=== PATIENT | female | born 1935 | race Caucasian/White ===

== ENCOUNTER → 2017-05-03 | Outpatient (CLI) | payer OTHER, MEDICARE | LOC: BMCIMAGING 12:13 | PROVIDERS: ATTEND Internal Medicine | DX: Z12.31 Encounter for screening mammogram for malignant neoplasm of breast (principal); Z85.3 Personal history of malignant neoplasm of breast | CPT/HCPCS: G0202 ==

== ENCOUNTER → 2018-05-04 | Outpatient (CLI) | payer OTHER, MEDICARE | LOC: BMCIMAGING 08:41 | PROVIDERS: ATTEND Internal Medicine | DX: Z12.31 Encounter for screening mammogram for malignant neoplasm of breast (principal); Z85.3 Personal history of malignant neoplasm of breast ==

== ENCOUNTER 2019-01-16 06:41 | Emergency (ER) | payer OTHER, MEDICARE ==
[2019-01-16] MEDS ORDERED: LIDOCAINE 2% VISCOUS 15 ML UDCUP PO ONE (07:09)
[2019-01-16] MEDS ORDERED: HYOSCYAMINE SULFATE 0.125 MG TAB PO ONE (07:09)
[2019-01-16] MEDS ORDERED: MAG HYDROX/AL HYDROX/SIMETH 30 ML UDCUP PO ONE (07:09)
[2019-01-16] MEDS ORDERED: NITROGLYCERIN 0.4 MG BTL SL PRN (07:09)
[2019-01-16] MEDS ORDERED: ASPIRIN 81 MG CHEWABLE TAB PO ONE (07:09)
--- NOTE | 2019-01-16 07:09 | EDPHY ---
H & P Time Seen by Provider: 01/16/19 06:56 HPI/ROS: CHIEF COMPLAINT: Chest pain HISTORY OF PRESENT ILLNESS: Patient states that she came in today because her blood pressure was up and she has been having chest pain for several weeks and wanted to get it checked out. She states that the chest pain feels like a "burning sensation" in the substernal and epigastric region. She thought it may be from her stomach. She describes it as about 5/10 at its worst and currently 1 to 2/10. She states the pain is slightly better with sitting up and slightly worse at night. She denies any shortness of breath. She has had no nausea or vomiting. She has had no difficulty with exercise. She states she walks 30-45 minutes a day and has had no problems with this in the last week. She has not taken her blood pressure medicines this morning. She also describes her legs feel like she is "low on potassium". She denies fevers, chills, cough. She states this does not feel like her Takasubo's. REVIEW OF SYSTEMS: Constitutional: No fever, no chills. Eyes: No discharge. ENT: No sore throat. Cardiovascular: Per HPI Respiratory: No cough, no shortness of breath. Gastrointestinal: No abdominal pain, no vomiting. Genitourinary: No dysuria. Musculoskeletal: No back pain. Skin: No rashes. Neurological: No headache. General Appearance: Alert, no distress. Eyes: Pupils equal and round no pallor or injection. ENT, Mouth: Mucous membranes moist. Respiratory: There are no retractions, lungs are clear to auscultation. Cardiovascular: Regular rate and rhythm. Gastrointestinal: Abdomen is soft and nontender, no masses, bowel sounds normal. Neurological: Awake, alert, normal cranial nerves, no neurologic deficits. Skin: Warm and dry, no rashes. Musculoskeletal: Neck is supple nontender. Extremities are symmetrical, full range of motion, no edema. Psychiatric: Patient is oriented X 3, there is no agitation. Medical/surgical history: Hypertension, takotsubo. Cardiomyopathy in 2005. Lumpectomy. Social history: No tobacco, smoked 50 years ago. Smoking Status: Former smoker Constitutional: Initial Vital Signs Temperature (C) 36.3 C 01/16/19 06:41 Heart Rate 72 01/16/19 06:41 Respiratory Rate 18 01/16/19 06:41 Blood Pressure 187/100 H 01/16/19 06:41 O2 Sat (%) 97 01/16/19 06:41 O2 Delivery Mode Room Air Allergies/Adverse Reactions: No Known Allergies Allergy (Verified 01/16/19 06:45) Home Medications: Medication Instructions Recorded Amlodipine 05/03/14 Hydrochlorothiazide 05/03/14 Lisinopril 05/03/14 Potassium 05/03/14 Medical Decision Making - Diagnostics EKG Interpretation: EKG shows normal sinus rhythm with normal rate, left axis deviation, normal intervals. No acute ST T-wave changes to suggest ischemia or infarct. Impression left axis deviation otherwise normal EKG. Repeat EKG shows normal sinus rhythm with normal rate, left axis deviation still present. Normal intervals. No evidence of ischemia or infarct. Imaging Results: Chest x-ray shows no acute findings, no change when compared to previous. Imaging: I viewed and interpreted images myself ED Course/Re-evaluation: Patient given nitroglycerin in GI cocktail and on re-evaluation states pain improved. Blood pressure also improved. Discussed with patient her heart score of 3 and her low risk of major adverse cardiac event. We will repeat EKG and troponin. Repeat EKG and troponin unremarkable. Patient comfortable with discharge and understands follow-up. Differential Diagnosis: Differential diagnosis includes but is not limited to acute coronary syndrome, gastroesophageal reflux disease, Takatsubo cardiomyopathy, congestive heart failure. After evaluation suspect patient's symptoms are from a GI source and she plans to follow up with Dr. Jarvis at [facility]. No evidence of acute coronary syndrome or recurrent Takasubo's. Patient's symptoms improved in the emergency department. She is comfortable with plan and understands return precautions. Stable for discharge. - Data Points Laboratory Results: Laboratory Results 01/16/19 06:55 01/16/19 06:55 Medications Given: Discontinued Medications Al Hydroxide/Mg Hydroxide (Maalox Susp) 30 ml PO ONCE ONE Stop: 01/16/19 07:10 Last Admin: 01/16/19 07:22 Dose: 30 ml Aspirin (Aspirin) 324 mg PO EDNOW ONE Stop: 01/16/19 07:10 Last Admin: 01/16/19 07:21 Dose: 324 mg Hyoscyamine Sulfate (Levsin, Hyomax-Sl) 0.25 mg PO ONCE ONE Stop: 01/16/19 07:10 Last Admin: 01/16/19 07:23 Dose: 0.25 mg Lidocaine (Lidocaine 2% Viscous) 15 ml PO ONCE ONE Stop: 01/16/19 07:10 Last Admin: 01/16/19 07:23 Dose: 15 ml Nitroglycerin (Nitrostat) 0.4 mg SL Q5M PRN PRN Reason: Chest Pain Last Admin: 01/16/19 08:28 Dose: 0.4 mg Point of Care Test Results: Chemistry 01/16/19 01/16/19 09:45 07:00 POC Troponin I 0.01 ng/mL ng/mL 0.00 ng/mL ng/mL (0.00-0.08) (0.00-0.08) Departure - Departure Disposition: Home, Routine, Self-Care Clinical Impression: Chest pain Condition: Good Instructions: Chest Pain (ED), Gastroesophageal Reflux Disease (DC) Additional Instructions: Follow-up with her primary care physician and deck mate as discussed. Discussed with her primary care doctor whether you need a stress test or not. Return to the emergency department if symptoms worsen or become concerning in any way. You should try [id number] acid reducing medications but perhaps wait until you see your deck mate. Referrals: Elvira Grover MD [Primary Care Provider] - As per Instructions Navid Jarvis MD [[facility] [place] Primary Care Provider] - As per Instructions
[2019-01-16 07:16] LABS: PLATELET COUNT 267 10^3/uL (150-400)
[2019-01-16 10:37] VITALS: BP 187/100
--- NOTE | 2019-01-18 09:09 | CPEKG ---
Test Reason : OPEN Blood Pressure : / mmHG Vent. Rate : 069 BPM Atrial Rate : 069 BPM P-R Int : 142 ms QRS Dur : 097 ms QT Int : 430 ms P-R-T Axes : -40 -37 064 degrees QTc Int : 461 ms Sinus rhythm Left axis deviation Confirmed by Lenora Lynch ([id number]) on 01/18/2019 9:08:42 AM Referred By: PHYSICIAN ED Confirmed By:Lenora Lynch
--- NOTE | 2019-01-18 09:09 | CPEKG ---
Test Reason : OPEN Blood Pressure : / mmHG Vent. Rate : 067 BPM Atrial Rate : 066 BPM P-R Int : 144 ms QRS Dur : 093 ms QT Int : 421 ms P-R-T Axes : 029 -30 048 degrees QTc Int : 445 ms Sinus rhythm Left axis deviation Probable anterior infarct, age indeterminate Confirmed by Lenora Lynch ([id number]) on 01/18/2019 9:08:41 AM Referred By: Lenora Lynch Confirmed By:Lenora Lynch
== END 2019-01-16 10:37 | disposition home or self-care (01) ==
DX: R07.9 Chest pain, unspecified (principal); R10.13 Epigastric pain; I10 Essential (primary) hypertension; Z79.899 Other long term (current) drug therapy
CPT/HCPCS: 84484-ER

== ENCOUNTER → 2019-05-06 | Outpatient (CLI) | payer OTHER, MEDICARE | LOC: BMCIMAGING 08:53 ==